=== PATIENT | male | born 1955 | race Caucasian/White ===

== ENCOUNTER 2016-10-17 09:59 | Emergency (ER) | payer BC ==
--- NOTE | 2016-10-17 10:12 | ER Document Report ---
ED Medical Screen (RME) - General Stated Complaint: DIZZY Notes: 61 yo male with hx/o a-fib, HTN, DM recent stent placement c/o dizziness x 1 month. pt is resident of [facility]. woke up today c/o increased dizziness. no chest pain. stent placed 2 wks ago TRAVEL OUTSIDE OF THE [place] IN LAST 30 DAYS: No - Related Data Allergies/Adverse Reactions: No Known Allergies Allergy (Verified 10/17/16 10:08) Past Medical History - Past Medical History Cardiac Medical History: Reports: Hx Atrial Fibrillation, Hx Congestive Heart Failure, Hx Coronary Artery Disease, Hx Heart Attack, Hx Hypercholesterolemia, Hx Hypertension Endocrine Medical History: Reports: Hx Diabetes Mellitus Type 2, Hx Hypothyroidism Renal/ Medical History: Reports: Hx Kidney Stones GI Medical History: Reports: Hx Gastroesophageal Reflux Disease Psychiatric Medical History: Reports: Hx Dementia - Probably has some degree of dementia, Hx Depression - 4 years ago, Hx Schizophrenia Past Surgical History: Reports: Hx Abdominal Surgery - GBP, Hx Appendectomy, Hx Cardiac Catheterization, Hx Coronary Stent, Hx Gastric Bypass Surgery - Immunizations Hx Diphtheria, Pertussis, Tetanus Vaccination: Yes
[2016-10-17 11:02] LABS: ABSOLUTE EOSINOPHILS # (AUTO) 0.1 10^3/uL (0.0-0.6); ABSOLUTE LYMPHOCYTES (AUTO) 0.8 10^3/uL (0.5-4.7); ABSOLUTE MONOCYTES (AUTO) 0.6 10^3/uL (0.1-1.4); ABSOLUTE NEUT (AUTO) 3.3 10^3/uL (1.7-8.2); BASOPHILS % (AUTO) 0.7 % (0-2); EOSINOPHILS % (AUTO) 2.4 % (0-6); HEMATOCRIT 39.4 % (37.9-51.0); HEMOGLOBIN 12.7 g/dL (13.5-17.0); HGB HCT DIFFERENCE -1.3; LYMPHOCYTES % (AUTO) 15.8 % (13-45); MEAN CORPUSCULAR HEMOGLOBIN 27.4 pg (27.0-33.4); MEAN CORPUSCULAR HGB CONC 32.4 g/dL (32.0-36.0); MEAN CORPUSCULAR VOLUME 85 fl (80-97); MONOCYTES % (AUTO) 12.1 % (3-13); RED BLOOD COUNT 4.65 10^6/uL (4.35-5.55); RED CELL DISTRIBUTION WIDTH 14.6 % (11.5-14.0); WHITE BLOOD COUNT 4.8 10^3/uL (4.0-10.5)
[2016-10-17 11:06] LABS: APPEARANCE,URINE CLOUDY; BILIRUBIN,URINE SMALL (NEGATIVE); GLUCOSE, URINE NEGATIVE (NEGATIVE); KETONES,URINE TRACE mg/dL (NEGATIVE); LEUKOCYTE ESTERASE,URINE MODERATE (NEGATIVE); NITRITE,URINE NEGATIVE (NEGATIVE); PROTEIN,URINE 100 mg/dL (NEGATIVE); URINE SPECIFIC GRAVITY 1.024
[2016-10-17 11:16] LABS: ALANINE AMINOTRANSFERASE 27 U/L (21-72); ALBUMIN 3.8 g/dL (3.5-5.0); ALKALINE PHOSPHATASE 89 U/L (38-126); ANION GAP 14 (5-19); ASPARTATE AMINO TRANSFERASE 24 U/L (17-59); BILIRUBIN,TOTAL 0.6 mg/dL (0.2-1.3); BLOOD UREA NITROGEN 12 mg/dL (7-20); CARBON DIOXIDE 21 mmol/L (22-30); CHLORIDE 109 mmol/L (98-107); CREATINE KINASE 140 U/L (55-170); GLUCOSE 113 mg/dL (75-110); POTASSIUM 3.9 mmol/L (3.6-5.0); SODIUM 143.5 mmol/L (137-145); TOTAL PROTEIN 5.9 g/dL (6.3-8.2)
[2016-10-17 11:28] LABS: TROPONIN I < 0.012 ng/mL
--- NOTE | 2016-10-17 12:20 | ER Document Report ---
ED General - General Chief Complaint: Chest Pain Stated Complaint: DIZZY TRAVEL OUTSIDE OF THE [place] IN LAST 30 DAYS: No - Related Data Allergies/Adverse Reactions: No Known Allergies Allergy (Verified 10/17/16 10:08) Past Medical History - Social History Smoking Status: Never Smoker Chew tobacco use (# tins/day): No Frequency of alcohol use: None Drug Abuse: None Family History: Reviewed & Not Pertinent, CAD, Other - Dementia Patient has suicidal ideation: No Patient has homicidal ideation: No - Past Medical History Cardiac Medical History: Reports: Hx Atrial Fibrillation, Hx Congestive Heart Failure, Hx Coronary Artery Disease, Hx Heart Attack, Hx Hypercholesterolemia, Hx Hypertension Endocrine Medical History: Reports: Hx Diabetes Mellitus Type 2, Hx Hypothyroidism Renal/ Medical History: Reports: Hx Kidney Stones. Denies: Hx Peritoneal Dialysis GI Medical History: Reports: Hx Gastroesophageal Reflux Disease Psychiatric Medical History: Reports: Hx Dementia - Probably has some degree of dementia, Hx Depression - 4 years ago, Hx Schizophrenia Past Surgical History: Reports: Hx Abdominal Surgery - GBP, Hx Appendectomy, Hx Cardiac Catheterization, Hx Coronary Stent, Hx Gastric Bypass Surgery - Immunizations Hx Diphtheria, Pertussis, Tetanus Vaccination: Yes Physical Exam - Vital signs Vitals: Temp Pulse Resp BP Pulse Ox 97.4 F 65 16 105/57 L 98 10/17/16 10:17 10/17/16 10:17 10/17/16 10:17 10/17/16 10:17 10/17/16 10:17 Course - Re-evaluation Re-evalutation: 10/17/16 12:13 I spoke with the patient's pit recorder, he agrees that this appears to be orthostatic, the patient officially had missed appointments on both Saturday and Saturday and decided to come to the emergency department on Saturday. He requests that they be seen in his office Saturday at 10:30 AM. Daughter states she will be there. He will also get them a specialist for possible autonomic dysfunction Mmd Unit Teacher reqeuested salt tablets, sodium is normal and given hx of chf concern for fluid overload, will use midodrine for a few days until reevaluated by cardiology as this is the only fda approved treatment for [place]. housekeeping laundry worker has been consultation regarding daughter's concerns of right he is staying Otherwise patient is stable as this is been ongoing now for years in fact After performing a Medical Screening Examination, I estimate there is LOW risk for RUPTURED ESOPHAGUS, PNEUMOTHORAX, PULMONARY EMBOLISM, ACUTE CORONARY SYNDROME, OR THORACIC AORTIC DISSECTION, thus I consider the discharge disposition reasonable. The patient and I have discussed the diagnosis and risks , and we agree with discharging home with close follow-up. We also discussed returning to the Emergency Department immediately if new or worsening symptoms occur. We have discussed the symptoms which are most concerning (e.g., bloody sputum, worsening pain or shortness of breath) that necessitate immediate return. 10/17/16 12:20 - Vital Signs Vital signs: Temp Pulse Resp BP Pulse Ox 97.4 F 54 L 15 108/61 99 10/17/16 10:17 10/17/16 11:00 10/17/16 11:00 10/17/16 11:00 10/17/16 11:00 - Laboratory Result Diagrams: 10/17/16 10:35 10/17/16 10:35 Laboratory results interpreted by me: 10/17/16 10/17/16 10/17/16 10:35 10:35 10:35 Hgb 12.7 L RDW 14.6 H Chloride 109 H Carbon Dioxide 21 L Glucose 113 H CK-MB (CK-2) 4.90 H Total Protein 5.9 L Urine Protein Urine Ketones Urine Bilirubin Urine Urobilinogen Ur Leukocyte Esterase 10/17/16 10:35 Hgb RDW Chloride Carbon Dioxide Glucose CK-MB (CK-2) Total Protein Urine Protein 100 H Urine Ketones TRACE H Urine Bilirubin SMALL H Urine Urobilinogen 4.0 H Ur Leukocyte Esterase MODERATE H - Diagnostic Test Radiology reviewed: Image reviewed, Reports reviewed - EKG Interpretation by Me EKG shows normal: Sinus rhythm, [place], Intervals, QRS Complexes Discharge - Discharge Clinical Impression: Orthostatic hypotension, Weakness Condition: Stable Disposition: HOME, SELF-CARE Instructions: Orthostatic Hypotension ([facility]) Prescriptions: Midodrine HCl [Proamatine 5 mg Tablet] 5 mg PO BID #60 tablet
[2016-10-17 12:55] VITALS: BP 112/68
--- NOTE | 2016-10-17 14:59 | EKG REPORT ---
SEVERITY:- ABNORMAL ECG - SINUS RHYTHM RIGHT BUNDLE BRANCH BLOCK : Confirmed by: Shirley Sosa MD 17-Oct-2016 14:58:20
== END 2016-10-17 12:55 | disposition home or self-care (01) ==
LOC: ER 09:59
DX: I95.1 Orthostatic hypotension (principal); R53.1 Weakness; I25.10 Atherosclerotic heart disease of native coronary artery without angina pectoris; I25.2 Old myocardial infarction; I10 Essential (primary) hypertension; E11.9 Type 2 diabetes mellitus without complications; Z98.84 Bariatric surgery status; Z98.61 Coronary angioplasty status
CPT/HCPCS: 36415; 71020; 80053; 81001; 82550; 82553; 84484; 85025; 93005; 93010; 99285

== ENCOUNTER 2016-10-20 10:04 | Emergency (ER) | payer BC ==
--- NOTE | 2016-10-20 10:40 | ER Document Report ---
ED Dizziness/Weakness - General Mode of Arrival: Ambulatory Information source: Patient TRAVEL OUTSIDE OF THE [place] IN LAST 30 DAYS: No - HPI Patient complains to provider of: Dizziness Onset: Just prior to arrival Associated symptoms: Other - see above <KANIKA JHA - Last Filed: 10/20/16 10:40> <RADHANETO - Last Filed: 10/20/16 14:53> - General Chief Complaint: Dizziness Stated Complaint: DIZZINESS Notes: 61 year old male with history of atrial fibrillation, CHF, [place], coronary artery disease, and stents presents to the ED via EMS complaining of dizziness secondary to being hypotensive (EMS reports 94/48) that started just prior to arrival. Patient states that he was seen in the ED on 10/17/2016 for dizziness and was started on midodrine by his borderer, Dr. Stuart. Patient states that he had a follow up appointment with Dr. Stuart yesterday and was put on a salt tablet. Patient started taking these salt tablets today. Patient states he is unsure whether or not Dr. Stuart told him to stop taking midodrine. Patient further explains that his psychiatrist has put him on new medication and has been complaining of intermittent tremors to the bilateral hands since. Patient states that he used to be on Coumadin, but is unsure if he is still on a blood thinning medication. (KANIKA JHA) - Related Data Allergies/Adverse Reactions: No Known Allergies Allergy (Verified 10/17/16 10:08) Past Medical History - General Information source: Patient - Social History Smoking Status: Unknown if Ever Smoked Family History: Reviewed & Not Pertinent, CAD, Other - Dementia - Past Medical History Cardiac Medical History: Reports: Hx Atrial Fibrillation, Hx Congestive Heart Failure, Hx Coronary Artery Disease, Hx Heart Attack, Hx Hypercholesterolemia, Hx Hypertension Endocrine Medical History: Reports: Hx Diabetes Mellitus Type 2, Hx Hypothyroidism Renal/ Medical History: Reports: Hx Kidney Stones. Denies: Hx Peritoneal Dialysis GI Medical History: Reports: Hx Gastroesophageal Reflux Disease Psychiatric Medical History: Reports: Hx Dementia - Probably has some degree of dementia, Hx Depression - 4 years ago, Hx Schizophrenia Past Surgical History: Reports: Hx Abdominal Surgery - GBP, Hx Appendectomy, Hx Cardiac Catheterization, Hx Coronary Stent, Hx Gastric Bypass Surgery - Immunizations Hx Diphtheria, Pertussis, Tetanus Vaccination: Yes <KANIKA JHA - Last Filed: 10/20/16 10:40> Review of Systems - Review of Systems Constitutional: No symptoms reported EENT: No symptoms reported Cardiovascular: See HPI, Dizziness Respiratory: No symptoms reported Gastrointestinal: No symptoms reported Genitourinary: No symptoms reported Male Genitourinary: No symptoms reported Musculoskeletal: No symptoms reported Skin: No symptoms reported Hematologic/Lymphatic: No symptoms reported Neurological/Psychological: See HPI, Tremor -: Yes All other systems reviewed and negative <KANIKA JHA - Last Filed: 10/20/16 10:40> Physical Exam - General General appearance: Alert In distress: None - HEENT Head: Normocephalic, Atraumatic Eyes: Normal Extraocular movements intact: Yes Pupils: PERRL - Respiratory Respiratory status: No respiratory distress Breath sounds: Normal - Cardiovascular Rhythm: Regular Heart sounds: Normal auscultation - Abdominal Inspection: Normal - Back Back: Normal - Extremities General upper extremity: Normal ROM, Other - tremor to bilateral hands. No: Normal inspection General lower extremity: Normal inspection, Normal ROM - Neurological Neuro grossly intact: Yes - demented - Psychological Associated symptoms: Normal affect, Normal mood - Skin Skin Temperature: Warm Skin Moisture: Dry Skin Color: Normal <KANIKA JHA - Last Filed: 10/20/16 10:40> Course - Laboratory Result Diagrams: 10/20/16 11:20 10/20/16 11:20 - EKG Interpretation by Hi EKG shows normal: Sinus rhythm, [place], Intervals, ST-T Waves. abnormal: QRS Complexes Rate: Normal - 52 Rhythm: NSR, PVC's [place]/QRS: RBBB When compared to previous EKG there are: No significant change <NETO GARCIA - Last Filed: 10/20/16 14:53> - Vital Signs Vital signs: Temp Pulse Resp BP Pulse Ox 97.4 F 58 L 16 105/57 L 98 10/20/16 10:07 10/20/16 10:29 10/20/16 13:04 10/20/16 13:04 10/20/16 13:04 (NETO GARCIA) - Laboratory Laboratory results interpreted by md: 10/20/16 10/20/16 10/20/16 11:20 11:20 11:20 Hgb 13.1 L RDW 14.9 H Monocytes % 13.4 H PT Chloride 109 H Carbon Dioxide 21 L Glucose 67 L Creatine Kinase 196 H CK-MB (CK-2) 5.03 H Urine Urobilinogen 10/20/16 10/20/16 11:20 12:22 Hgb RDW Monocytes % PT 17.4 H Chloride Carbon Dioxide Glucose Creatine Kinase CK-MB (CK-2) Urine Urobilinogen 4.0 H (NETO GARCIA) Discharge <KANIKA JHA - Last Filed: 10/20/16 10:40> <NETO GARCIA - Last Filed: 10/20/16 14:53> - Discharge Clinical Impression: Dizziness, Orthostatic hypotension, Low blood sugar Condition: Stable Disposition: HOME, SELF-CARE Additional Instructions: Your blood pressure was a little low when you arrived, your blood sugar was also low. Both of these conditions could be contributing to your dizzy sensation. Your symptoms are much improved after eating a meal, and receiving some IV fluids. Continue your present medications. Do not miss any meals. Follow-up with your borderer Saturday for recheck. RETURN TO THE EMERGENCY ROOM IF ANY NEW OR WORSENING SYMPTOMS. Referrals: MAYUR ROJAS MD [Primary Care Provider] - Follow up as needed Scribe Attestation: 10/20/16 14:53 I personally performed the services described in the documentation, reviewed and edited the documentation which was dictated to the scribe in my presence, and it accurately records my words and actions. (NETO GARCIA) Scribe Documentation - Scribe Written by Sonu:: Sonu Canales, 10/20/2016 10:48 acting as scribe for :: Radha <KANIKA JHA - Last Filed: 10/20/16 10:40>
[2016-10-20 11:42] LABS: ABSOLUTE BASOPHILS # (AUTO) 0.1 10^3/uL (0.0-0.2); ABSOLUTE EOSINOPHILS # (AUTO) 0.2 10^3/uL (0.0-0.6); ABSOLUTE LYMPHOCYTES (AUTO) 1.4 10^3/uL (0.5-4.7); ABSOLUTE MONOCYTES (AUTO) 0.8 10^3/uL (0.1-1.4); ABSOLUTE NEUT (AUTO) 3.3 10^3/uL (1.7-8.2); BASOPHILS % (AUTO) 0.9 % (0-2); EOSINOPHILS % (AUTO) 3.9 % (0-6); HEMATOCRIT 39.9 % (37.9-51.0); HEMOGLOBIN 13.1 g/dL (13.5-17.0); HGB HCT DIFFERENCE -0.6; LYMPHOCYTES % (AUTO) 24.1 % (13-45); MEAN CORPUSCULAR HEMOGLOBIN 27.7 pg (27.0-33.4); MEAN CORPUSCULAR HGB CONC 32.9 g/dL (32.0-36.0); MEAN CORPUSCULAR VOLUME 84 fl (80-97); MONOCYTES % (AUTO) 13.4 % (3-13); RED BLOOD COUNT 4.74 10^6/uL (4.35-5.55); RED CELL DISTRIBUTION WIDTH 14.9 % (11.5-14.0); SEGMENTED NEUTROPHILS % (AUTO) 57.7 % (42-78); WHITE BLOOD COUNT 5.7 10^3/uL (4.0-10.5)
[2016-10-20 11:48] LABS: PROTHROMBIN TIME 17.4 SEC (11.4-15.4)
[2016-10-20 12:02] LABS: ALANINE AMINOTRANSFERASE 34 U/L (21-72); ALBUMIN 3.6 g/dL (3.5-5.0); ALKALINE PHOSPHATASE 86 U/L (38-126); ANION GAP 14 (5-19); ASPARTATE AMINO TRANSFERASE 29 U/L (17-59); BILIRUBIN,TOTAL 0.8 mg/dL (0.2-1.3); BLOOD UREA NITROGEN 13 mg/dL (7-20); CALCIUM 9.5 mg/dL (8.4-10.2); CARBON DIOXIDE 21 mmol/L (22-30); CHLORIDE 109 mmol/L (98-107); CREATINE KINASE 196 U/L (55-170); CREATININE RESULT 1.03 mg/dL (0.52-1.25); GLUCOSE 67 mg/dL (75-110); POTASSIUM 3.9 mmol/L (3.6-5.0); SODIUM 143.9 mmol/L (137-145); TOTAL PROTEIN 6.4 g/dL (6.3-8.2)
[2016-10-20 12:13] LABS: CREATINE KINASE MB 5.03 ng/mL (<4.55); TROPONIN I < 0.012 ng/mL
[2016-10-20 12:56] LABS: APPEARANCE,URINE SLIGHTLY-CLOUDY; BILIRUBIN,URINE NEGATIVE (NEGATIVE); GLUCOSE, URINE NEGATIVE (NEGATIVE); KETONES,URINE NEGATIVE (NEGATIVE); LEUKOCYTE ESTERASE,URINE NEGATIVE (NEGATIVE); NITRITE,URINE NEGATIVE (NEGATIVE); PROTEIN,URINE NEGATIVE (NEGATIVE); URINE SPECIFIC GRAVITY 1.014
[2016-10-20] MEDS ORDERED: NORMAL SALINE 1000 ML 200 ML IV ONE (13:06)
--- NOTE | 2016-10-20 15:18 | EKG REPORT ---
SEVERITY:- ABNORMAL ECG - SINUS RHYTHM MULTIPLE VENTRICULAR PREMATURE COMPLEXES RIGHT BUNDLE BRANCH BLOCK : Confirmed by: Shirley Sosa MD 20-Oct-2016 15:17:41
[2016-10-20 16:30] VITALS: BP 124/78
== END 2016-10-20 14:00 | disposition home or self-care (01) ==
LOC: ER 10:04
DX: I95.1 Orthostatic hypotension (principal); E11.9 Type 2 diabetes mellitus without complications; I25.10 Atherosclerotic heart disease of native coronary artery without angina pectoris; I25.2 Old myocardial infarction; I45.10 Unspecified right bundle-branch block; I49.3 Ventricular premature depolarization; R42 Dizziness and giddiness; R25.1 Tremor, unspecified; I10 Essential (primary) hypertension; Z98.84 Bariatric surgery status; Z98.61 Coronary angioplasty status
CPT/HCPCS: 93005; 99284; 96360; 36415; 82553; 82550; 85025; 85610; 80053; 81001; 84484; 83880; 93010; J7030

== ENCOUNTER 2016-10-21 13:23 | Emergency (ER) | payer BC ==
--- NOTE | 2016-10-21 14:06 | ER Document Report ---
ED Blood Pressure Problem - General Chief Complaint: Low Blood Pressure Stated Complaint: POSSIBLE HYPOTENSION Mode of Arrival: Medic Information source: Patient, Emergency Med Personnel, REPLACED BY [facility] Records, Outside Facility Records TRAVEL OUTSIDE OF THE [place] IN LAST 30 DAYS: No - HPI Patient complains to provider of: Low blood pressure Onset: Other - CHRONIC & RECURRENT Onset/Duration: Intermittent Quality of pain: No pain Severity: Moderate Problem is: Chronic problem Pt currently taking medication for problem: Yes Associated symptoms: Dizziness, Lightheaded. denies: Chest pain, Headache, Syncope, Trouble breathing Similar symptoms previously: Yes Recently seen / treated by doctor: Yes - YESTERDAY AND 3 d AGO, REPLACED BY [facility] E.D. - Related Data Allergies/Adverse Reactions: No Known Allergies Allergy (Verified 10/17/16 10:08) Past Medical History - General Information source: Patient - Social History Smoking Status: Former Smoker Cigarette use (# per day): No Chew tobacco use (# tins/day): No Smoking Education Provided: No Frequency of alcohol use: None Drug Abuse: None Lives with: Shelter - [facility] Family History: Reviewed & Not Pertinent, CAD, Other - Dementia - Past Medical History Cardiac Medical History: Reports: Hx Atrial Fibrillation, Hx Congestive Heart Failure, Hx Coronary Artery Disease, Hx Heart Attack, Hx Hypercholesterolemia, Hx Hypertension Endocrine Medical History: Reports: Hx Diabetes Mellitus Type 2, Hx Hypothyroidism Renal/ Medical History: Reports: Hx Kidney Stones. Denies: Hx Peritoneal Dialysis GI Medical History: Reports: Hx Gastroesophageal Reflux Disease Psychiatric Medical History: Reports: Hx Dementia - Probably has some degree of dementia, Hx Depression - 4 years ago, Hx Schizophrenia Past Surgical History: Reports: Hx Abdominal Surgery - GBP, Hx Appendectomy, Hx Cardiac Catheterization, Hx Coronary Stent, Hx Gastric Bypass Surgery - Immunizations Hx Diphtheria, Pertussis, Tetanus Vaccination: Yes Review of Systems - Review of Systems Constitutional: No symptoms reported EENT: No symptoms reported Cardiovascular: See HPI Respiratory: No symptoms reported Gastrointestinal: No symptoms reported Genitourinary: No symptoms reported Musculoskeletal: No symptoms reported. denies: Muscle pain, Muscle stiffness Skin: No symptoms reported Neurological/Psychological: No symptoms reported -: Yes All other systems reviewed and negative Physical Exam - Vital signs Vitals: Pulse Ox 99 10/21/16 13:31 Interpretation: Hypotensive - AT HOME; LOWER LIMIT NORMAL UPON ARRIVAL TO E.D. - General General appearance: Appears well, Alert In distress: None - HEENT Head: Normocephalic Eyes: Normal Conjunctiva: Normal Ears: Normal Nasal: Normal Mouth/Lips: Other - VERY POOR DENTITION Mucous membranes: Normal Pharynx: Normal Neck: Normal - Respiratory Respiratory status: No respiratory distress Breath sounds: Normal - Cardiovascular Rhythm: Regular Heart sounds: Normal auscultation Murmur: No - Abdominal Inspection: Normal Distension: No distension Bowel sounds: Normal - Back Back: Normal - Extremities General upper extremity: Normal inspection General lower extremity: Normal inspection - Neurological Neuro grossly intact: Yes Cognition: Normal Orientation: AAOx4 - Psychological Associated symptoms: Normal affect, Normal mood - Skin Skin Temperature: Warm Skin Moisture: Dry Skin Color: Normal Skin Turgor: Elastic Course - Vital Signs Vital signs: Temp Pulse Resp BP Pulse Ox 97.7 F 11 L 133/72 H 92 10/21/16 13:40 10/21/16 14:01 10/21/16 14:01 10/21/16 14:01 - Laboratory Result Diagrams: 10/21/16 14:20 10/21/16 14:20 Laboratory results interpreted by me: 10/21/16 10/21/16 10/21/16 13:40 14:20 14:20 Hgb 12.3 L RDW 14.9 H Chloride 111 H Carbon Dioxide 21 L Glucose 72 L Creatine Kinase 228 H CK-MB (CK-2) Total Protein 5.9 L Urine Urobilinogen 2.0 H 10/21/16 14:20 Hgb RDW Chloride Carbon Dioxide Glucose Creatine Kinase CK-MB (CK-2) 6.43 H Total Protein Urine Urobilinogen Laboratory results today indicate patient is better hydrated than before, otherwise results are unremarkable. Increased CK and CK-MB will need to be followed up by patient's primary care provider. - EKG Interpretation by Me EKG shows normal: Sinus rhythm, Intervals. abnormal: [place], QRS Complexes, ST-T Waves - LAT. T INVERSIONS Rate: Normal [place]/QRS: RBBB Discharge - Discharge Clinical Impression: Low blood pressure Qualifiers: Hypotension type: idiopathic hypotension Qualified Code(s): I95.0 - Idiopathic hypotension Condition: Stable Disposition: HOME, SELF-CARE Additional Instructions: INCREASE YOUR MIDODRINE TO 5 mg THREE TIMES A DAY. STOP TAKING ATORVASTATIN, ASK YOUR PRIMARY CARE PROVIDER IF IT'S O.K. TO RESUME TAKING IT. CONTINUE ALL OTHER MEDS BEFORE. FOLLOW UP WITH YOUR PRIMARY CARE PROVIDER IN THE NEXT 3-5 DAYS.
[2016-10-21 14:08] LABS: APPEARANCE,URINE CLEAR; BILIRUBIN,URINE NEGATIVE (NEGATIVE); GLUCOSE, URINE NEGATIVE (NEGATIVE); KETONES,URINE NEGATIVE (NEGATIVE); LEUKOCYTE ESTERASE,URINE NEGATIVE (NEGATIVE); NITRITE,URINE NEGATIVE (NEGATIVE); PROTEIN,URINE NEGATIVE (NEGATIVE); URINE SPECIFIC GRAVITY 1.012
[2016-10-21 14:49] LABS: ABSOLUTE EOSINOPHILS # (AUTO) 0.3 10^3/uL (0.0-0.6); ABSOLUTE LYMPHOCYTES (AUTO) 1.4 10^3/uL (0.5-4.7); ABSOLUTE MONOCYTES (AUTO) 0.8 10^3/uL (0.1-1.4); ABSOLUTE NEUT (AUTO) 4.2 10^3/uL (1.7-8.2); BASOPHILS % (AUTO) 0.6 % (0-2); EOSINOPHILS % (AUTO) 3.8 % (0-6); HEMATOCRIT 38.1 % (37.9-51.0); HEMOGLOBIN 12.3 g/dL (13.5-17.0); HGB HCT DIFFERENCE -1.2; LYMPHOCYTES % (AUTO) 21.2 % (13-45); MEAN CORPUSCULAR HEMOGLOBIN 27.4 pg (27.0-33.4); MEAN CORPUSCULAR HGB CONC 32.3 g/dL (32.0-36.0); MEAN CORPUSCULAR VOLUME 85 fl (80-97); RED BLOOD COUNT 4.48 10^6/uL (4.35-5.55); RED CELL DISTRIBUTION WIDTH 14.9 % (11.5-14.0); SEGMENTED NEUTROPHILS % (AUTO) 62.4 % (42-78); WHITE BLOOD COUNT 6.7 10^3/uL (4.0-10.5)
[2016-10-21 15:06] LABS: ALANINE AMINOTRANSFERASE 33 U/L (21-72); ALBUMIN 3.6 g/dL (3.5-5.0); ALKALINE PHOSPHATASE 87 U/L (38-126); ANION GAP 12 (5-19); ASPARTATE AMINO TRANSFERASE 25 U/L (17-59); BILIRUBIN,TOTAL 0.6 mg/dL (0.2-1.3); BLOOD UREA NITROGEN 13 mg/dL (7-20); CALCIUM 8.7 mg/dL (8.4-10.2); CARBON DIOXIDE 21 mmol/L (22-30); CHLORIDE 111 mmol/L (98-107); CREATINE KINASE 228 U/L (55-170); CREATININE RESULT 0.91 mg/dL (0.52-1.25); GLUCOSE 72 mg/dL (75-110); POTASSIUM 3.7 mmol/L (3.6-5.0); SODIUM 143.5 mmol/L (137-145); TOTAL PROTEIN 5.9 g/dL (6.3-8.2)
[2016-10-21 15:18] LABS: CREATINE KINASE MB 6.43 ng/mL (<4.55)
[2016-10-21 15:19] LABS: TROPONIN I < 0.012 ng/mL
[2016-10-21] MEDS ORDERED: MIDODRINE HCL 5 MG TABLET PO ONE (16:42)
[2016-10-21 18:46] VITALS: BP 147/74
--- NOTE | 2016-10-21 23:04 | EKG REPORT ---
SEVERITY:- ABNORMAL ECG - SINUS RHYTHM RIGHT BUNDLE BRANCH BLOCK : Confirmed by: Shirley Sosa MD 21-Oct-2016 23:03:26
== END 2016-10-21 18:46 | disposition home or self-care (01) ==
LOC: ER 13:23
DX: I95.0 Idiopathic hypotension (principal); R42 Dizziness and giddiness; I45.10 Unspecified right bundle-branch block; I25.10 Atherosclerotic heart disease of native coronary artery without angina pectoris; I25.2 Old myocardial infarction; I10 Essential (primary) hypertension; E11.9 Type 2 diabetes mellitus without complications; Z98.84 Bariatric surgery status; Z87.891 Personal history of nicotine dependence; Z98.61 Coronary angioplasty status
CPT/HCPCS: 36415; 80053; 81001; 82550; 82553; 84484; 85025; 93005; 93010; 99285

== ENCOUNTER 2016-10-26 10:00 | Emergency (ER) | payer BC ==
--- NOTE | 2016-10-26 10:27 | ER Document Report ---
ED Blood Pressure Problem - General Mode of Arrival: Medic Information source: Patient, Emergency Med Personnel TRAVEL OUTSIDE OF THE [place] IN LAST 30 DAYS: No - HPI Patient complains to provider of: Low blood pressure Onset: Just prior to arrival Associated symptoms: Other - See above <PRETTY SMILEY - Last Filed: 10/26/16 10:43> <RADHANETO Meehan - Last Filed: 10/26/16 12:38> - General Chief Complaint: Low Blood Pressure Stated Complaint: DIZZINESS Notes: Patient is a 61 year old male, with a past medical history including atrial fibrillation, CHF, [place], coronary artery disease, and stent placement, who presents to the ED via EMS for hypotension. Patient was sent from [facility] where they read his BP as 80/60, en route patient's BP increased which has been a normal occurrence recently. Patient was seen in the ED on 10/17/2016 for dizziness and was started on salt tablets by the ER doctor, he saw his data librarian, Dr. Stuart, on 10/19/16 and was put on Midodrine. Patient came back to the ER on 10/20 and again on 10/21 for similar complaints. Patient reports that he followed up with his data librarian again on 10/25/16 and was told that these episodes may be something he needs to live with, he is continuing taking Midodrine. Patient states he is currently feeling dizzy. Trail Construction Worker: Dr. Stuart (PRETTY SMILEY) - Related Data Allergies/Adverse Reactions: No Known Allergies Allergy (Verified 10/17/16 10:08) Past Medical History - General Information source: Patient - Social History Smoking Status: Unknown if Ever Smoked Family History: Reviewed & Not Pertinent, CAD, Other - Dementia - Past Medical History Cardiac Medical History: Reports: Hx Atrial Fibrillation, Hx Congestive Heart Failure, Hx Coronary Artery Disease, Hx Heart Attack, Hx Hypercholesterolemia, Hx Hypertension Endocrine Medical History: Reports: Hx Diabetes Mellitus Type 2, Hx Hypothyroidism Renal/ Medical History: Reports: Hx Kidney Stones GI Medical History: Reports: Hx Gastroesophageal Reflux Disease Psychiatric Medical History: Reports: Hx Dementia - Probably has some degree of dementia, Hx Depression - 4 years ago, Hx Schizophrenia Past Surgical History: Reports: Hx Abdominal Surgery - GBP, Hx Appendectomy, Hx Cardiac Catheterization, Hx Coronary Stent, Hx Gastric Bypass Surgery - Immunizations Hx Diphtheria, Pertussis, Tetanus Vaccination: Yes <PRETTY SMILEY - Last Filed: 10/26/16 10:43> Review of Systems - Review of Systems Constitutional: No symptoms reported EENT: No symptoms reported Cardiovascular: See HPI, Dizziness Respiratory: No symptoms reported Gastrointestinal: No symptoms reported Genitourinary: No symptoms reported Male Genitourinary: No symptoms reported Musculoskeletal: No symptoms reported Skin: No symptoms reported Hematologic/Lymphatic: No symptoms reported Neurological/Psychological: No symptoms reported -: Yes All other systems reviewed and negative <PRETTY SMILEY - Last Filed: 10/26/16 10:43> Physical Exam - Vital signs Interpretation: Normal - General General appearance: Appears well - Smiling, Alert - HEENT Head: Normocephalic, Atraumatic Mouth/Lips: Other - Poor dentition - Respiratory Respiratory status: No respiratory distress Chest status: Nontender Breath sounds: Normal Chest palpation: Normal - Cardiovascular Rhythm: Regular Heart sounds: Normal auscultation Murmur: No - Abdominal Inspection: Normal Distension: No distension Bowel sounds: Normal Tenderness: Nontender Organomegaly: No organomegaly - Extremities General upper extremity: Normal inspection General lower extremity: Normal inspection. No: Edema - Neurological Neuro grossly intact: Yes Cognition: Normal Orientation: AAOx4 [place] Coma Scale Eye Opening: Spontaneous [place] Coma Scale Verbal: Oriented [place] Coma Scale Motor: Obeys Commands [place] Coma Scale Total: 15 Speech: Normal - Psychological Associated symptoms: Normal affect, Normal mood - Skin Skin Temperature: Warm Skin Moisture: Dry Skin Color: Normal <PRETTY SMILEY - Last Filed: 10/26/16 10:43> Course - Laboratory Result Diagrams: 10/26/16 10:20 10/26/16 10:20 <PRETTY SMILEY - Last Filed: 10/26/16 10:43> - Laboratory Result Diagrams: 10/26/16 10:20 10/26/16 10:20 - EKG Interpretation by Dc EKG shows normal: Sinus rhythm, [place], Intervals, QRS Complexes, ST-T Waves Rate: Normal - 72 Rhythm: NSR, PVC's [place]/QRS: RBBB <NETO GARCIA - Last Filed: 10/26/16 12:38> - Re-evaluation Re-evalutation: 10/26/16 12:36 Patient is sitting up on the stretcher. Patient is smiling. Patient is eating crackers. Blood pressure is 121 systolic. He has no symptoms at this time, other than being hungry. (NETO GARCIA) - Vital Signs Vital signs: Temp Pulse Resp BP Pulse Ox 24 H 133/87 H 100 10/26/16 10:23 10/26/16 10:23 10/26/16 10:23 (NETO GARCIA) - Laboratory Laboratory results interpreted by me: 10/26/16 10/26/16 10/26/16 10:20 10:20 10:20 RDW 15.4 H Sodium 145.8 H Chloride 112 H Carbon Dioxide 18 L Glucose 152 H Creatine Kinase 177 H CK-MB (CK-2) 4.76 H Urine Ketones Urine Urobilinogen Ur Leukocyte Esterase 10/26/16 11:20 RDW Sodium Chloride Carbon Dioxide Glucose Creatine Kinase CK-MB (CK-2) Urine Ketones TRACE H Urine Urobilinogen 4.0 H Ur Leukocyte Esterase SMALL H (NETO GARCIA) Discharge <PRETTY SMILEY - Last Filed: 10/26/16 10:43> <NETO GARCIA - Last Filed: 10/26/16 12:38> - Discharge Clinical Impression: Idiopathic hypotension, Dizziness Condition: Stable Disposition: HOME, SELF-CARE Additional Instructions: Follow-up with your primary care doctor or your data librarian. Please have them talk with the staff where you live about how to manage your low blood pressure without returning to the emergency room every time. RETURN TO THE EMERGENCY ROOM IF ANY NEW OR WORSENING SYMPTOMS. Referrals: CHANDNI AL MD [Primary Care Provider] - Follow up as needed Scribe Attestation: 10/26/16 12:38 I personally performed the services described in the documentation, reviewed and edited the documentation which was dictated to the scribe in my presence, and it accurately records my words and actions. (NETO GARCIA) Scribe Documentation - Scribe Written by Alexus:: alexus [place], 10/26/16, [id number] acting as scribe for :: Radha <PRETTY SMILEY - Last Filed: 10/26/16 10:43>
[2016-10-26] MEDS ORDERED: RINGERS SOLUTION,LACTATED 250 ML IV ONE (10:28)
[2016-10-26 10:37] LABS: ABSOLUTE BASOPHILS # (AUTO) 0.1 10^3/uL (0.0-0.2); ABSOLUTE EOSINOPHILS # (AUTO) 0.2 10^3/uL (0.0-0.6); ABSOLUTE LYMPHOCYTES (AUTO) 1.2 10^3/uL (0.5-4.7); ABSOLUTE MONOCYTES (AUTO) 0.4 10^3/uL (0.1-1.4); ABSOLUTE NEUT (AUTO) 2.2 10^3/uL (1.7-8.2); BASOPHILS % (AUTO) 1.4 % (0-2); EOSINOPHILS % (AUTO) 4.1 % (0-6); HEMATOCRIT 41.7 % (37.9-51.0); HEMOGLOBIN 13.5 g/dL (13.5-17.0); HGB HCT DIFFERENCE -1.2; LYMPHOCYTES % (AUTO) 30.2 % (13-45); MEAN CORPUSCULAR HEMOGLOBIN 27.5 pg (27.0-33.4); MEAN CORPUSCULAR HGB CONC 32.4 g/dL (32.0-36.0); MEAN CORPUSCULAR VOLUME 85 fl (80-97); MONOCYTES % (AUTO) 11.1 % (3-13); RED CELL DISTRIBUTION WIDTH 15.4 % (11.5-14.0); SEGMENTED NEUTROPHILS % (AUTO) 53.2 % (42-78)
[2016-10-26 11:02] LABS: ALANINE AMINOTRANSFERASE 26 U/L (21-72); ALBUMIN 3.9 g/dL (3.5-5.0); ALKALINE PHOSPHATASE 91 U/L (38-126); ANION GAP 16 (5-19); ASPARTATE AMINO TRANSFERASE 30 U/L (17-59); BILIRUBIN,TOTAL 0.7 mg/dL (0.2-1.3); BLOOD UREA NITROGEN 8 mg/dL (7-20); CALCIUM 9.4 mg/dL (8.4-10.2); CARBON DIOXIDE 18 mmol/L (22-30); CHLORIDE 112 mmol/L (98-107); CREATINE KINASE 177 U/L (55-170); GLUCOSE 152 mg/dL (75-110); MAGNESIUM 2.2 mg/dL (1.6-2.3); POTASSIUM 4.4 mmol/L (3.6-5.0); SODIUM 145.8 mmol/L (137-145); TOTAL PROTEIN 6.4 g/dL (6.3-8.2)
[2016-10-26 11:13] LABS: CREATINE KINASE MB 4.76 ng/mL (<4.55)
[2016-10-26 11:14] LABS: TROPONIN I < 0.012 ng/mL
[2016-10-26 11:56] LABS: APPEARANCE,URINE SLIGHTLY-CLOUDY; BILIRUBIN,URINE NEGATIVE (NEGATIVE); GLUCOSE, URINE NEGATIVE (NEGATIVE); KETONES,URINE TRACE mg/dL (NEGATIVE); LEUKOCYTE ESTERASE,URINE SMALL (NEGATIVE); NITRITE,URINE NEGATIVE (NEGATIVE); PROTEIN,URINE NEGATIVE (NEGATIVE); URINE SPECIFIC GRAVITY 1.009
[2016-10-26 13:17] VITALS: BP 121/96
--- NOTE | 2016-10-27 09:27 | EKG REPORT ---
SEVERITY:- ABNORMAL ECG - SINUS RHYTHM FREQUENT VENTRICULAR PREMATURE COMPLEXES RIGHT BUNDLE BRANCH BLOCK : Confirmed by: Stanley Dennis 27-Oct-2016 09:27:36
== END 2016-10-26 13:56 | disposition home or self-care (01) ==
LOC: ER 10:00
DX: I95.0 Idiopathic hypotension (principal); R42 Dizziness and giddiness; I48.91 Unspecified atrial fibrillation; I50.9 Heart failure, unspecified; I25.10 Atherosclerotic heart disease of native coronary artery without angina pectoris; I11.0 Hypertensive heart disease with heart failure; E11.9 Type 2 diabetes mellitus without complications; I25.2 Old myocardial infarction; Z98.84 Bariatric surgery status
CPT/HCPCS: 93005; 99285; 96360; 36415; 82553; 82550; 83735; 85025; 80053; 81001; 84484; 93010; J7120

== ENCOUNTER 2016-11-15 20:27 | Emergency (ER) | payer BC ==
[2016-11-15] MEDS ORDERED: LIDOCAINE 2% URO-JET 5 ML KIT MM ONE (20:31)
--- NOTE | 2016-11-15 21:32 | ER Document Report ---
ED General - General Chief Complaint: General Weakness Stated Complaint: WEAKNESS WHEN STANDING Time seen by provider: 21:20 Mode of Arrival: Medic Information source: Patient Notes: 61-year-old male who presents complaining about dizziness when he stands up. Patient carries a diagnosis of orthostatic hypotension for which he's been prescribed Midrin by his decision science analyst Dr. Joe and he says he has been taking that as usual. He reports he had been doing better on the medication but then felt dizzy again with standing today. He denies a fall or loss of consciousness. He denies chest pain, shortness of breath, abdominal pain, nausea, vomiting, pain numbness or focal weakness to any extremity, blurry vision, difficulty with speech or swallowing, worsening of his dizziness with head rotation. He is asymptomatic lying on the stretcher. Physical Exam: General: Alert, appears well. HEENT: Normocephalic. Atraumatic. PERRLA. Extraocular movements intact. Oropharynx clear. Neck: Supple. Non-tender. No carotid bruits Respiratory: No respiratory distress. Clear and equal breath sounds bilaterally. Cardiovascular: Irregular rate no murmur PMI not displaced Abdominal: Normal Inspection. Soft, non-tender. No distension. Normal Bowel Sounds. Back: Non-tender. No deformity or step off. Extremities: Moves all four extremities. Upper extremities: Normal inspection. Non-tender. Normal color. Normal ROM. Normal temperature. Velcro wrist splint in place bilaterally Lower extremities: Normal inspection. Non-tender. No edema. Normal color. Normal ROM. Normal temperature. Neurological: Oriented 3. Gross strength 5 out of 5 equal both upper extremities motor function 5 out of 5 equal both lower extremities. Cerebellar function intact by finger to nose test bilaterally. Cranial nerves 3 through 12 intact Psychological: Normal affect. Normal Mood. Skin: Warm. Dry. Normal color. TRAVEL OUTSIDE OF THE [place] IN LAST 30 DAYS: No - Related Data Allergies/Adverse Reactions: No Known Allergies Allergy (Verified 10/17/16 10:08) Past Medical History - Social History Smoking Status: Former Smoker Family History: CAD, Other - Dementia - Past Medical History Cardiac Medical History: Reports: Hx Atrial Fibrillation, Hx Congestive Heart Failure, Hx Coronary Artery Disease, Hx Heart Attack, Hx Hypercholesterolemia, Hx Hypertension Endocrine Medical History: Reports: Hx Diabetes Mellitus Type 2, Hx Hypothyroidism Renal/ Medical History: Reports: Hx Kidney Stones. Denies: Hx Peritoneal Dialysis GI Medical History: Reports: Hx Gastroesophageal Reflux Disease Psychiatric Medical History: Reports: Hx Dementia - Probably has some degree of dementia, Hx Depression - 4 years ago, Hx Schizophrenia Past Surgical History: Reports: Hx Abdominal Surgery - GBP, Hx Appendectomy, Hx Cardiac Catheterization, Hx Coronary Stent, Hx Gastric Bypass Surgery - Immunizations Hx Diphtheria, Pertussis, Tetanus Vaccination: Yes Review of Systems - Review of Systems Constitutional: denies: Chills, Fever EENT: denies: Ear pain, Throat pain Cardiovascular: Dizziness, Lightheaded. denies: Chest pain, Syncope Respiratory: denies: Cough, Short of breath Gastrointestinal: denies: Abdominal pain, Diarrhea, Nausea, Vomiting Genitourinary: denies: Burning, Dysuria Musculoskeletal: denies: Back pain, Muscle pain Skin: denies: Rash Hematologic/Lymphatic: denies: Swollen glands Neurological/Psychological: denies: Weakness, Numbness Physical Exam - Vital signs Vitals: Pulse BP 62 135/71 H 11/15/16 22:05 11/15/16 22:05 Course - Re-evaluation Re-evalutation: 11/15/16 23:47 Patient has mild evidence for UTI he'll be placed on antibiotics for this out of an abundance of caution given his reported episodes of dizziness. I think however that most of his symptoms are as previously diagnosed autonomic dysfunction and was struck and continue his other outpatient regimen and follow- up with his physicians - Vital Signs Vital signs: Temp Pulse Resp BP Pulse Ox 62 135/71 H 11/15/16 22:05 11/15/16 22:05 - Laboratory Result Diagrams: 11/15/16 21:17 11/15/16 21:17 Laboratory results interpreted by me: 11/15/16 11/15/16 11/15/16 21:17 21:17 22:00 RBC 4.09 L Hgb 11.3 L Hct 34.5 L RDW 14.6 H Plt Count 124 L Monocytes % 13.8 H Total Protein 5.8 L Albumin 3.1 L Ur Leukocyte Esterase SMALL H - Diagnostic Test Radiology reviewed: Image reviewed, Reports reviewed - EKG Interpretation by Me Additional EKG results interpreted by me: 11/15/16 23:46 EKG reviewed by myself shows sinus bradycardia 52 right bundle-branch block no acute changes Discharge - Discharge Clinical Impression: Orthostasis UTI (urinary tract infection) Qualifiers: Urinary tract infection type: site unspecified Hematuria presence: without hematuria Qualified Code(s): N39.0 - Urinary tract infection, site not specified Condition: Stable Disposition: HOME-SNF (ED ONLY) Instructions: Urinary Tract Infection ([facility]) Prescriptions: Nitrofurantoin Monohyd/M-Cryst [Macrobid 100 mg Capsule] 100 mg PO BID #14 capsule Referrals: JESSICA BRUNER MD [Primary Care Provider] - Follow up as needed EUSEBIA JOE MD [ACTIVE STAFF] - Follow up as needed
[2016-11-15 21:33] LABS: ABSOLUTE EOSINOPHILS # (AUTO) 0.1 10^3/uL (0.0-0.6); ABSOLUTE LYMPHOCYTES (AUTO) 1.4 10^3/uL (0.5-4.7); ABSOLUTE MONOCYTES (AUTO) 0.6 10^3/uL (0.1-1.4); ABSOLUTE NEUT (AUTO) 2.2 10^3/uL (1.7-8.2); BASOPHILS % (AUTO) 0.4 % (0-2); EOSINOPHILS % (AUTO) 3.1 % (0-6); HEMATOCRIT 34.5 % (37.9-51.0); HEMOGLOBIN 11.3 g/dL (13.5-17.0); HGB HCT DIFFERENCE -0.6; LYMPHOCYTES % (AUTO) 31.4 % (13-45); MEAN CORPUSCULAR HEMOGLOBIN 27.7 pg (27.0-33.4); MEAN CORPUSCULAR HGB CONC 32.9 g/dL (32.0-36.0); MEAN CORPUSCULAR VOLUME 84 fl (80-97); MONOCYTES % (AUTO) 13.8 % (3-13); RED BLOOD COUNT 4.09 10^6/uL (4.35-5.55); RED CELL DISTRIBUTION WIDTH 14.6 % (11.5-14.0); SEGMENTED NEUTROPHILS % (AUTO) 51.3 % (42-78); WHITE BLOOD COUNT 4.3 10^3/uL (4.0-10.5)
[2016-11-15 21:41] LABS: ALANINE AMINOTRANSFERASE 31 U/L (21-72); ALBUMIN 3.1 g/dL (3.5-5.0); ALKALINE PHOSPHATASE 88 U/L (38-126); ANION GAP 10 (5-19); ASPARTATE AMINO TRANSFERASE 20 U/L (17-59); BILIRUBIN,TOTAL 0.5 mg/dL (0.2-1.3); BLOOD UREA NITROGEN 16 mg/dL (7-20); CALCIUM 8.9 mg/dL (8.4-10.2); CARBON DIOXIDE 23 mmol/L (22-30); CHLORIDE 106 mmol/L (98-107); CREATINE KINASE 102 U/L (55-170); CREATININE RESULT 1.03 mg/dL (0.52-1.25); GLUCOSE 77 mg/dL (75-110); POTASSIUM 3.7 mmol/L (3.6-5.0); TOTAL PROTEIN 5.8 g/dL (6.3-8.2)
[2016-11-15 21:52] LABS: CREATINE KINASE MB 3.12 ng/mL (<4.55)
[2016-11-15 21:53] LABS: TROPONIN I < 0.012 ng/mL
[2016-11-15 22:17] LABS: APPEARANCE,URINE CLEAR; BILIRUBIN,URINE NEGATIVE (NEGATIVE); GLUCOSE, URINE NEGATIVE (NEGATIVE); KETONES,URINE NEGATIVE (NEGATIVE); LEUKOCYTE ESTERASE,URINE SMALL (NEGATIVE); NITRITE,URINE NEGATIVE (NEGATIVE); PROTEIN,URINE NEGATIVE (NEGATIVE); URINE SPECIFIC GRAVITY 1.005; UROBILINOGEN,URINE NEGATIVE mg/dL (<2.0)
[2016-11-16 03:03] VITALS: BP 127/63
--- NOTE | 2016-11-16 18:06 | EKG REPORT ---
SEVERITY:- ABNORMAL ECG - SINUS RHYTHM RIGHT BUNDLE BRANCH BLOCK : Confirmed by: Shirley Sosa MD 16-Nov-2016 18:05:18
== END 2016-11-16 03:03 ==
LOC: ER 20:27
DX: I95.1 Orthostatic hypotension (principal); N39.0 Urinary tract infection, site not specified; R42 Dizziness and giddiness; R53.1 Weakness; Z87.891 Personal history of nicotine dependence
CPT/HCPCS: 36415; 71010; 80053; 81001; 82550; 82553; 84484; 85025; 93005; 93010; 99285